=== PATIENT | female | born 1960 ===

== ENCOUNTER → 2020-07-28 | Outpatient (CLI) | payer BC | LOC: SJCVCIMAG 10:39 | PROVIDERS: ATTEND Internal Medicine | DX: Z01.810 Encounter for preprocedural cardiovascular examination (principal); I10 Essential (primary) hypertension ==

== ENCOUNTER → 2020-07-30 | Outpatient (CLI) | payer BC | LOC: SJCVCIMAG | PROVIDERS: ATTEND Internal Medicine | DX: R00.0 Tachycardia, unspecified (principal); I49.1 Atrial premature depolarization; R94.31 Abnormal electrocardiogram [ECG] [EKG]; Z88.0 Allergy status to penicillin; Z88.8 Allergy status to other drugs, medicaments and biological substances; Z79.899 Other long term (current) drug therapy ==